=== PATIENT | female | born 1970 | race Hispanic/Latino ===

== ENCOUNTER 2019-10-09 20:41 | Emergency (ER) | payer OTHER ==
[2019-10-09 21:37] LABS: Absolute Lymphocytes (CBC) 2.6 K/uL (0.7-4.9); Basophils % 0.5 % (0-1.3); Hematocrit 37.8 % (36.0-45.0); Lymphocytes % 34.7 % (15.3-44.8); MPV 9.6 fL (7.6-11.3); RBC Red Blood Cell Count 5.14 M/uL (3.86-4.86)
[2019-10-09 21:51] LABS: Protime INR 0.84
[2019-10-09 21:54] LABS: ALT/SGPT 17 U/L (12-78); AST/SGOT 8 U/L (15-37); Albumin 3.3 g/dL (3.4-5.0); Alkaline Phosphatase 134 U/L (45-117); BUN Blood Urea Nitrogen 11 mg/dL (7-18); Bicarbonate 26 mmol/L (21-32); Bilirubin Direct < 0.1 mg/dL (0-0.2); Bilirubin Total 0.3 mg/dL (0.2-1.0); Glucose Level 392 mg/dL (74-106); Magnesium 1.7 mg/dL (1.8-2.4); NT PRO-BNP 11 pg/mL (<125); Protein, Total 7.4 g/dL (6.4-8.2); Sodium Level 136 mmol/L (136-145); Troponin (Emerg Dept Use Only) < 0.02 ng/mL (0.0-0.045)
[2019-10-09] MEDS ORDERED: MAGNESIUM OXIDE 400 MG TAB ONE (22:06)
[2019-10-09] MEDS ORDERED: INSULIN -REGULAR HUMAN 50 UNIT/0.5 ML ML ONE (22:10)
--- NOTE | 2019-10-09 22:13 | EDPHYS ---
Physician Documentation [facility] Name: Lurdes Canales Age: 49 yrs Sex: Female : 1970 Arrival Date: 10/09/2019 Time: 20:42 Bed 7 Private MD: ED Physician Jace Macario HPI: 10/09 22:03 This 49 yrs old Female presents to ER via Ambulatory with complaints of Chest jr8 Pain. 22:03 The patient or guardian reports chest pain that is located primarily in the substernal jr8 area. Onset: acutely, 3 day(s) ago. The pain does not radiate. Associated signs and symptoms: Pertinent positives: cough. The chest pain is described as sharp. Duration: The patient or guardian reports multiple episodes, that are intermittent. Modifying factors: The symptoms are alleviated by nothing. the symptoms are aggravated by nothing. Severity of pain: At its worst the pain was moderate in the emergency department the pain has improved moderately. The patient has not experienced similar symptoms in the past. The patient has not recently seen a physician. Patient stated that she has felt run down and achy for past couple of days. Has had three days of on/off chest pain that is intermittent and non reproducible . 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 - Social history:: Smoking status: Patient/guardian denies using tobacco, never smoked. - Ebola Screening: : Patient negative for fever greater than or equal to 101.5 degrees Fahrenheit, and additional compatible Ebola Virus Disease symptoms Patient denies exposure to infectious person Patient denies travel to an Ebola-affected area in the 21 days before illness onset. ROS: 22:03 Eyes: Negative for injury, pain, redness, and discharge, ENT: Negative for injury, jr8 pain, and discharge, Neck: Negative for injury, pain, and swelling, Abdomen/GI: Negative for abdominal pain, nausea, vomiting, diarrhea, and constipation, Back: Negative for injury and pain, MS/Extremity: Negative for injury and deformity, Skin: Negative for injury, rash, and discoloration, Neuro: Negative for headache, weakness, numbness, tingling, and seizure. 22:03 Constitutional: Positive for body aches, chills, malaise. 22:03 Cardiovascular: Positive for chest pain, Negative for edema, orthopnea, palpitations, paroxysmal nocturnal dyspnea. 22:03 Respiratory: Positive for cough, Negative for dyspnea on exertion, shortness of breath, sputum production, wheezing. Exam: 22:05 Eyes: Pupils equal round and reactive to light, extra-ocular motions intact. Lids and jr8 lashes normal. Conjunctiva and sclera are non-icteric and not injected. Cornea within normal limits. Periorbital areas with no swelling, redness, or edema. ENT: Nares patent. No nasal discharge, no septal abnormalities noted. Tympanic membranes are normal and external auditory canals are clear. Oropharynx with no redness, swelling, or masses, exudates, or evidence of obstruction, uvula midline. Mucous membranes moist. Neck: Trachea midline, no thyromegaly or masses palpated, and no cervical lymphadenopathy. Supple, full range of motion without nuchal rigidity, or vertebral point tenderness. No Meningismus. Chest/axilla: Normal chest wall appearance and motion. Nontender with no deformity. No lesions are appreciated. Cardiovascular: Regular rate and rhythm with a normal S1 and S2. No gallops, murmurs, or rubs. Normal PMI, no JVD. No pulse deficits. Respiratory: Lungs have equal breath sounds bilaterally, clear to auscultation and percussion. No rales, rhonchi or wheezes noted. No increased work of breathing, no retractions or nasal flaring. Abdomen/GI: Soft, non-tender, with normal bowel sounds. No distension or tympany. No guarding or rebound. No evidence of tenderness throughout. Back: No spinal tenderness. No costovertebral tenderness. Full range of motion. Skin: Warm, dry with normal turgor. Normal color with no rashes, no lesions, and no evidence of cellulitis. MS/ Extremity: Pulses equal, no cyanosis. Neurovascular intact. Full, normal range of motion. Neuro: Awake and alert, GCS 15, oriented to person, place, time, and situation. Cranial nerves II-XII grossly intact. Motor strength 5/5 in all extremities. Sensory grossly intact. Cerebellar exam normal. Normal gait. Vital Signs: 20:54 BP 150 / 75; Pulse 85; Resp 17; Temp 98.2; Pulse Ox 98% on R/A; Weight 100.24 kg; tl1 Height 5 ft. 5 in. (165.10 cm); Pain 5/10; 21:49 BP 131 / 75; Pulse 76; Resp 17 S; Pulse Ox 98% on R/A; jd3 22:52 BP 131 / 75; Pulse 82; Resp 18 S; Pulse Ox 97% on R/A; jd3 20:54 Body Mass Index 36.78 (100.24 kg, 165.10 cm) tl1 22:52 glucose of 330. jd3 MDM: 21:07 Patient medically screened. jr8 22:05 Differential diagnosis: abnormal EKG, acute myocardial infarction, chest wall pain, jr8 Cholelithiasis costochondritis, esophagitis, gastritis, gastroesophageal reflux disease (GERD), pneumonia, pulmonary embolus, thoracic aortic disection, unstable angina. HEMA Risk Score: 1 - Recent [<24hrs] Severe Angina, TOTAL SCORE = 1. Data reviewed: vital signs, nurses notes, lab test result(s), EKG, radiologic studies, plain films. Data interpreted: Pulse oximetry: on room air is 98 %. Interpretation: normal. Counseling: I had a detailed discussion with the patient and/or guardian regarding: the historical points, exam findings, and any diagnostic results supporting the discharge/admit diagnosis, lab results, radiology results, the need for outpatient follow up, a family practitioner, to return to the emergency department if symptoms worsen or persist or if there are any questions or concerns that arise at home. 22:07 Special discussion: Based on the patient's history, exam, and Dx evaluation, there is jr8 no indication for emergent intervention or inpatient Tx. It is understood by the patient/guardian that if the Sx's persist or worsen they need to return immediately for re-evaluation. 10/09 21:07 Order name: Basic Metabolic Panel; Complete Time: 22:00 jr8 10/09 21: Order name: CBC with Diff; Complete Time: 22:00 jr8 10/09 21:07 Order name: LFT's; Complete Time: 22:00 jr8 10/09 21:07 Order name: Magnesium; Complete Time: 22:00 10/09 21:07 Order name: NT PRO-BNP; Complete Time: 22:00 10/09 21:07 Order name: PT-INR; Complete Time: 22:00 10/09 21:07 Order name: Troponin (emerg Dept Use Only); Complete Time: 22:00 10/09 21:07 Order name: XRAY Chest (1 view) [facility] 10/09 21:07 Order name: EKG; Complete Time: 21:08 10/09 21:07 Order name: Cardiac monitoring; Complete Time: :33 10/09 21:17 Order name: Flu: Per IGNACIO Mendez; Complete Time: 21: [facility] 10/09 21:07 Order name: EKG - Nurse/Tech; Complete Time: :33 10/09 21:07 Order name: IV Saline Lock; Complete Time: :33 10/09 21:07 Order name: Labs collected and sent; Complete Time: :33 10/09 21:07 Order name: O2 Per Protocol; Complete Time: :33 10/09 21:07 Order name: O2 Sat Monitoring; Complete Time: : Administered Medications: 22:14 Drug: Magnesium Oxide 400 mg Route: PO; jd3 22:54 Follow up: Response: No adverse reaction jd3 22:15 Drug: Insulin Regular Human 10 units {Co-Signature: tl1 (Corry Leos RN).} Route: jd3 IVP; Site: right antecubital; 22:54 Follow up: Response: No adverse reaction jd3 Disposition: 10/09/19 22:12 Discharged to Home. Impression: Chest pain, unspecified, Hyperglycemia, unspecified. - Condition is Stable. - Discharge Instructions: Nonspecific Chest Pain, Hyperglycemia, Blood Glucose Monitoring, Adult. - Medication Reconciliation Form, Thank You Letter, Antibiotic Education, Prescription Opioid Use, Work release form form. - Follow up: Micha Rojas MD; When: 1 - 2 days; Reason: Recheck today's complaints, Continuance of care, Re-evaluation by your physician. - Problem is new. - Symptoms have improved. Addendum: 10/11/2019 13:49 Co-signature as Attending Physician, Jace Macario MD I agree with the assessment and c mccollum plan of care. Signatures: Dispatcher [employer] EDWA Jace Macario MD MD cha Roszak, Josh, IGNACIO PIERRE jr8 Corry Leos, RN RN tl1 Patrick Campbell RN RN jd3 Corry Leos RN tl1 Corrections: (The following items were deleted from the chart) 10/09 22:55 22:12 10/09/2019 22:12 Discharged to Home. Impression: Chest pain, unspecified; jd3 Hyperglycemia, unspecified. Condition is Stable. Forms are Medication Reconciliation Form, Thank You Letter, Antibiotic Education, Prescription Opioid Use. Follow up: Micha Rojas; When: 1 - 2 days; Reason: Recheck today's complaints, Continuance of care, Re-evaluation by your physician. Problem is new. Symptoms have improved. jr8
--- NOTE | 2019-10-09 22:13 | ER ---
Nurse's Notes [facility] Name: Lurdes Canales Age: 49 yrs Sex: Female : 1970 Arrival Date: 10/09/2019 Time: 20:42 Bed 7 Private MD: Diagnosis: Chest pain, unspecified;Hyperglycemia, unspecified Presentation: 10/09 20:52 Presenting complaint: Patient states: I have been having intermittent chest pain for 3 tl1 days and today I started having cough and fever and just not feeling well. Transition of care: patient was not received from another setting of care. Onset of symptoms was October 06, 2019. Risk Assessment: Do you want to hurt yourself or someone else? Patient reports no desire to harm self or others. Initial Sepsis Screen: Does the patient meet any 2 criteria? No. Patient's initial sepsis screen is negative. Does the patient have a suspected source of infection? No. Patient's initial sepsis screen is negative. Care prior to arrival: None. 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 - Social history:: Smoking status: Patient/guardian denies using tobacco, never smoked. - Ebola Screening: : Patient negative for fever greater than or equal to 101.5 degrees Fahrenheit, and additional compatible Ebola Virus Disease symptoms Patient denies exposure to infectious person Patient denies travel to an Ebola-affected area in the 21 days before illness onset. Screenin:01 Abuse screen: Denies threats or abuse. Nutritional screening: No deficits noted. jd3 Tuberculosis screening: No symptoms or risk factors identified. Fall Risk Ambulatory Aid- None/Bed Rest/Nurse Assist (0 pts). Gait- Normal/Bed Rest/Wheelchair (0 pts) Mental Status- Oriented to own ability (0 pts). Total Mckenna Fall Scale indicates No Risk (0-24 pts). Assessment: 20:58 General: Appears in no apparent distress. uncomfortable, Behavior is calm, cooperative, jd3 appropriate for age. Pain: Complains of pain in chest Pain does not radiate. Quality of pain is described as sharp, Pain began suddenly. Neuro: Level of Consciousness is awake, alert, obeys commands, Oriented to person, place, time, situation. Cardiovascular: Heart tones S1 S2 present Capillary refill < 3 seconds Patient's skin is warm and dry. Rhythm is regular. Respiratory: Airway is patent Respiratory effort is even, unlabored, Respiratory pattern is regular, symmetrical, Denies cough, shortness of breath. GI: Abdomen is round non-distended, Patient currently denies diarrhea, nausea, vomiting. : No signs and/or symptoms were reported regarding the genitourinary system. EENT: No signs and/or symptoms were reported regarding the EENT system. Derm: Skin is intact, Skin is dry, Skin is normal, Skin temperature is warm. Musculoskeletal: Circulation, motion, and sensation intact. Range of motion: intact in all extremities. 21:49 Reassessment: Patient appears in no apparent distress at this time. No changes from jd3 previously documented assessment. Patient and/or family updated on plan of care and expected duration. Pain level reassessed. Patient is alert, oriented x 3, equal unlabored respirations, skin warm/dry/pink. 22:54 Reassessment: Patient appears in no apparent distress at this time. Patient and/or d3 family updated on plan of care and expected duration. Pain level reassessed. Patient is alert, oriented x 3, equal unlabored respirations, skin warm/dry/pink. discharged after rechecking blood sugar after insulin was given. Patient states feeling better. Vital Signs: 20:54 BP 150 / 75; Pulse 85; Resp 17; Temp 98.2; Pulse Ox 98% on R/A; Weight 100.24 kg; tl1 Height 5 ft. 5 in. (165.10 cm); Pain 5/10; 21:49 BP 131 / 75; Pulse 76; Resp 17 S; Pulse Ox 98% on R/A; jd3 22:52 BP 131 / 75; Pulse 82; Resp 18 S; Pulse Ox 97% on R/A; jd3 20:54 Body Mass Index 36.78 (100.24 kg, 165.10 cm) tl1 22:52 glucose of 330. d3 ED Course: 20:42 Patient arrived in ED. cf2 20:53 Triage completed. tl1 20:55 Arm band placed on right wrist. EKG completed in triage. Results shown to MD. tl1 20:56 EKG done, by ED staff, reviewed by Jace Macario MD. jd3 20:57 Patrick Campbell, SIMIN is Primary Nurse. jd3 21:01 Patient has correct armband on for positive identification. Placed in gown. Bed in low jd3 position. Call light in reach. Side rails up X 1. Adult w/ patient. bend sorter on. Pulse ox on. NIBP on. 21:01 Patient maintains SpO2 saturation greater than 95% on room air. jd3 21:07 Hermes Chahal PA is PHCP. jr8 21:07 Jace Macario MD is Attending Physician. jr8 21:31 XRAY Chest (1 view) In Process Unspecified. EDMS 22:12 Micha Rojas MD is Referral Physician. jr8 22:53 No provider procedures requiring assistance completed. IV discontinued, intact, jd3 bleeding controlled, No redness/swelling at site. Pressure dressing applied. Administered Medications: 22:14 Drug: Magnesium Oxide 400 mg Route: PO; jd3 22:54 Follow up: Response: No adverse reaction jd3 22:15 Drug: Insulin Regular Human 10 units {Co-Signature: tl1 (Corry Leos RN).} Route: jd3 IVP; Site: right antecubital; 22:54 Follow up: Response: No adverse reaction jd3 Outcome: 22:12 Discharge ordered by MD. jr8 22:53 Discharged to home ambulatory, with family. jd3 22:53 Condition: stable 22:53 Discharge instructions given to patient, family, Instructed on discharge instructions, follow up and referral plans. Demonstrated understanding of instructions, follow-up care. 22:55 Patient left the ED. jd3 Signatures: Dispatcher [employer] EDMS Hermes Chahal PA PA jr8 Lasagna, Tonya, SIMIN RN tl1 Patrick Campbell RN RN jd3 Khadijah Oquendo cf2 Corry Leos RN tl1 Corrections: (The following items were deleted from the chart) 22:53 22:52 BP 131 / 75; Pulse 82bpm; Resp 18bpm; Spontaneous; Pulse Ox 97% RA; jd3 jd3
--- NOTE | 2019-10-10 08:06 | RAD REPORT ---
EXAM DESCRIPTION: Doris Single View10/09/2019 9:31 pm CLINICAL HISTORY: Chest pain COMPARISON: none FINDINGS: The lungs appear clear of acute infiltrate. The heart is normal size IMPRESSION: No acute abnormalities displayed
--- NOTE | 2019-10-10 08:18 | EKG ---
Test Date: 2019-10-09 Test Time: 20:52:41 Remote Encoding Operations Supervisor: MATI MEASUREMENT RESULTS: Intervals: Rate: 79 MD: 130 QRSD: 94 QT: 398 QTc: 456 Bonner: P: 55 MD: 130 QRS: 55 T: 44 INTERPRETIVE STATEMENTS: Normal sinus rhythm Normal ECG No previous ECG available for comparison Electronically Signed On 10-10-19 08:15:59 [employer] by Micha Rojas
[2019-10-10 09:13] VITALS: TEMP 98.2
[2019-10-10 09:15] VITALS: BP 131/75
[2019-10-10 09:17] VITALS: O2SAT 97
== END 2019-10-09 22:55 | disposition home or self-care (01) ==
LOC: ER 20:41
DX: R07.9 Chest pain, unspecified (principal); E11.65 Type 2 diabetes mellitus with hyperglycemia; I10 Essential (primary) hypertension
CPT/HCPCS: 36415; 71045; 80048; 80076; 82947; 83735; 83880; 84484; 85025; 85610; 87804; 93005; 96374; 99285

== ENCOUNTER 2021-03-14 21:00 | Observation (INO) | payer BC, OTHER ==
[2021-03-14 22:09] LABS: Absolute Lymphocytes (CBC) 2.7 K/uL (0.7-4.9); Basophils % 0.7 % (0-1.3); Lymphocytes % 33.5 % (15.3-44.8); MPV 8.9 fL (7.6-11.3); RBC Red Blood Cell Count 4.72 M/uL (3.86-4.86)
[2021-03-14 22:26] LABS: Protime INR 0.92
[2021-03-14 22:42] LABS: ALT/SGPT 20 U/L (12-78); AST/SGOT 10 U/L (15-37); Albumin 3.4 g/dL (3.4-5.0); Alkaline Phosphatase 116 U/L (45-117); BUN Blood Urea Nitrogen 13 mg/dL (7-18); Bicarbonate 27 mmol/L (21-32); Bilirubin Direct < 0.1 mg/dL (0-0.2); Bilirubin Total 0.2 mg/dL (0.2-1.0); Glucose Level 190 mg/dL (74-106); Magnesium 1.9 mg/dL (1.8-2.4); NT PRO-BNP 32 pg/mL (<125); Potassium 3.9 mmol/L (3.5-5.1); Protein, Total 7.7 g/dL (6.4-8.2); Sodium Level 138 mmol/L (136-145); Troponin (Emerg Dept Use Only) < 0.02 ng/mL (0.0-0.045)
[2021-03-14 22:48] LABS: Urine Blood TRACE (Negative); Urine Glucose 1+ (Negative); Urine Protein TRACE (Negative); Urine Specific Gravity >1.030 (1.005-1.030)
[2021-03-14 22:49] LABS: Urine Specific Gravity/Preg >1.030 (1.005-1.030)
[2021-03-14] MEDS ORDERED: ASPIRIN 81 MG CHEWABLE TABLET ONE (23:08)
--- NOTE | 2021-03-15 02:17 | EDPHYS ---
Physician Documentation [facility] Name: Lurdes Canales Age: 51 yrs Sex: Female : 1970 Arrival Date: 03/14/2021 Time: 21:02 Bed 18 Private MD: ED Physician Quinten Tran HPI: 03/14 22:25 This 51 yrs old Female presents to ER via Ambulatory with complaints of Chest mh7 Pain, TINGLING IN FACE. 22:25 The patient or guardian reports chest pain that is located primarily in the anterior mh7 chest wall, left. Onset: 2 day(s) ago. The pain does not radiate. 03/15 00:01 Associated signs and symptoms: Pertinent negatives: abdominal pain, cough, diaphoresis, mh7 dizziness, headache, lower extremity pain, lower extremity swelling, lightheadedness, nausea, near syncope, palpitations, recent travel, shortness of breath, syncope, vomiting. The chest pain is described as sharp. Duration: The patient or guardian reports multiple episodes, that are intermittent, that wax and wane. Modifying factors: The symptoms are alleviated by nothing. the symptoms are aggravated by nothing. Severity of pain: At its worst the pain was moderate 2 day(s) ago, in the emergency department the pain has improved markedly. SAP GATHERER: 03/14 21:10 LMP N/A - Irregular menses ca1 Historical: - Allergies: 21:10 No Known Allergies; ca1 - Home Meds: 21:10 losartan 50 mg oral tab 1 tab once daily [Active]; metformin 1,000 mg oral tab 1 tab 2 ca1 times per day [Active]; - PMHx: 21:10 Diabetes - NIDDM; Hypertension; ca1 - PSHx: 21:10 None; ca1 - Immunization history:: Client reports receiving the 2nd dose of the Covid vaccine, Client reports receiving the 1st dose of the Covid vaccine, Flu vaccine is not up to date. - Social history:: Smoking status: Patient denies any tobacco usage or history of. ROS: 03/15 00:01 Constitutional: Negative for fever, chills, and weight loss, Eyes: Negative for injury, mh7 pain, redness, and discharge, ENT: Negative for injury, pain, and discharge, Respiratory: Negative for shortness of breath, cough, wheezing, and pleuritic chest pain, Abdomen/GI: Negative for abdominal pain, nausea, vomiting, diarrhea, and constipation, Back: Negative for injury and pain, : Negative for injury, bleeding, discharge, and swelling, MS/Extremity: Negative for injury and deformity, Skin: Negative for injury, rash, and discoloration, Neuro: Negative for headache, weakness, numbness, tingling, and seizure, Psych: Negative for depression, anxiety, suicide ideation, homicidal ideation, and hallucinations, Allergy/Immunology: Negative for hives, rash, and allergies, Endocrine: Negative for neck swelling, polydipsia, polyuria, polyphagia, and marked weight changes, Hematologic/Lymphatic: Negative for swollen nodes, abnormal bleeding, and unusual bruising. Exam: 00:01 Constitutional: This is a well developed, well nourished patient who is awake, alert, mh7 and in no acute distress. Head/Face: Normocephalic, atraumatic. Eyes: Pupils equal round and reactive to light, extra-ocular motions intact. Lids and lashes normal. Conjunctiva and sclera are non-icteric and not injected. Cornea within normal limits. Periorbital areas with no swelling, redness, or edema. Neck: Trachea midline, no thyromegaly or masses palpated, and no cervical lymphadenopathy. Supple, full range of motion without nuchal rigidity, or vertebral point tenderness. No Meningismus. Chest/axilla: Normal chest wall appearance and motion. Nontender with no deformity. No lesions are appreciated. Cardiovascular: Regular rate and rhythm with a normal S1 and S2. No gallops, murmurs, or rubs. Normal PMI, no JVD. No pulse deficits. Respiratory: Lungs have equal breath sounds bilaterally, clear to auscultation and percussion. No rales, rhonchi or wheezes noted. No increased work of breathing, no retractions or nasal flaring. Abdomen/GI: Soft, non-tender, with normal bowel sounds. No distension or tympany. No guarding or rebound. No evidence of tenderness throughout. Back: No spinal tenderness. No costovertebral tenderness. Full range of motion. Skin: Warm, dry with normal turgor. Normal color with no rashes, no lesions, and no evidence of cellulitis. MS/ Extremity: Pulses equal, no cyanosis. Neurovascular intact. Full, normal range of motion. Neuro: Awake and alert, GCS 15, oriented to person, place, time, and situation. Cranial nerves II-XII grossly intact. Motor strength 5/5 in all extremities. Sensory grossly intact. Cerebellar exam normal. Normal gait. Psych: Awake, alert, with orientation to person, place and time. Behavior, mood, and affect are within normal limits. Vital Signs: 03/14 21:06 BP 175 / 104; Pulse 90; Resp 16 S; Temp 97.2(TE); Pulse Ox 98% on R/A; Weight 110.22 kg ca1 (R); Height 5 ft. 5 in. (165.10 cm) (R); Pain 5/10; 23:16 BP 142 / 63; Pulse 77; Resp 18; Pulse Ox 99% ; ea 03/15 01:20 BP 151 / 92; Pulse 78; Resp 18; Pulse Ox 98% on R/A; ea 03/14 21:06 Body Mass Index 40.44 (110.22 kg, 165.10 cm) ca1 MDM: 02:14 Differential diagnosis: acute myocardial infarction, acute pericarditis, anxiety, mh7 coronary artery disease chest wall pain, congestive heart failure costochondritis, myocarditis, pericarditis, pleurisy, pneumonia, pneumothorax, pulmonary embolus. HEART Score: History: Moderately Suspicious (1), ECG: Normal (0), Age: > 45 and < 65 years (1), Risk Factors: > or = 3 Risk factors for atherosclerotic disease (2), [Hypertension] [DM] [+ Family HX] [Obesity] Troponin: < or = 1 x Normal Limit (0), Total Score = 4. The patient was given aspirin in the Emergency Department. Data reviewed: vital signs, nurses notes, lab test result(s), cardiac enzymes, CBC, electrolytes, urinalysis, EKG, radiologic studies, plain films. Data interpreted: Pulse oximetry: on room air is 98 %. Interpretation: normal. Counseling: I had a detailed discussion with the patient and/or guardian regarding: the historical points, exam findings, and any diagnostic results supporting the discharge/admit diagnosis, the presence of at least one elevated blood pressure reading (>120/80) during this emergency department visit, lab results, radiology results, the need for further work-up and treatment in the hospital. Response to treatment: the patient's symptoms have markedly improved after treatment. 02:16 Patient medically screened. [facility] 03/14 21:47 Order name: Basic Metabolic Panel; Complete Time: 22:45 [facility] 03/14 21:47 Order name: CBC with Diff; Complete Time: 22:45 [facility] 03/14 21:47 Order name: LFT's; Complete Time: 22:45 [facility] 03/14 21:47 Order name: Magnesium; Complete Time: 22:45 [facility] 03/14 21:47 Order name: NT PRO-BNP; Complete Time: 22:45 [facility] 03/14 21:47 Order name: PT-INR; Complete Time: 23:55 [facility] 03/14 21:47 Order name: Troponin (emerg Dept Use Only); Complete Time: 22:45 [facility] 03/14 22:18 Order name: Urine Dipstick--Ancillary (enter results); Complete Time: 22:51 [facility] 03/14 22:18 Order name: Urine --Ancillary (enter results); Complete Time: 22:51 [facility] 03/14 23:21 Order name: D-Dimer; Complete Time: 23:55 [facility] 03/15 01:03 Order name: Troponin (emerg Dept Use Only); Complete Time: 01:54 [facility] 03/15 05:09 Order name: COVID-19 : Document "Date of Symptom Onset" if Symptomatic. [facility] 03/15 05:36 Order name: CORONAVIRUS [facility] 03/14 21:10 Order name: EKG; Complete Time: 21:11 [facility] 03/14 21:10 Order name: EKG - Nurse/Tech; Complete Time: 21:12 [facility] 03/14 21:47 Order name: XRAY Chest (1 view) [facility] 03/14 21:47 Order name: Cardiac monitoring; Complete Time: 21:57 [facility] 03/14 21:47 Order name: IV Saline Lock; Complete Time: 21:58 [facility] 03/14 21:47 Order name: Labs collected and sent; Complete Time: 21:58 [facility] 03/14 21:47 Order name: O2 Per Protocol; Complete Time: 21:58 [facility] 03/14 21:47 Order name: O2 Sat Monitoring; Complete Time: 21:58 [facility] 03/15 06:18 Order name: SARS-COV-2 RT PCR [facility] 03/15 07:52 Order name: Glucose, Ancillary Testing [facility] 03/15 07:59 Order name: Troponin I [facility] 03/15 07:59 Order name: Lipid Profile [facility] 03/15 07:59 Order name: T4 Free [facility] 03/15 07:59 Order name: Thyroid Stimulating Hormone [facility] 03/15 11:54 Order name: Glucose, Ancillary Testing [facility] 03/14 21:48 Order name: Urine Dipstick-Ancillary (obtain specimen); Complete Time: 22:15 7 03/14 21:48 Order name: Urine Test (obtain specimen); Complete Time: 22:15 [facility] Administered Medications: 03/14 23:10 Drug: Aspirin Chewable Tablet 324 mg Route: PO; ea 03/15 01:21 Follow up: Response: No adverse reaction ea Disposition: 03/15/21 02:17 Hospitalization ordered by Leeanna Cutler for Observation. Preliminary diagnosis is Chest pain, unspecified. - Bed requested for [facility] ER HOLD. - Status is Observation. bp - Condition is Stable. - Problem is new. - Symptoms have improved. Signatures: Dispatcher [employer] [facility] Evette Palma RN RN bb Michelle Almodovar, RN RN cg Ann Snider RN RN ea Toni Bacon, Ladan Bennett RN, RN RN ca1 Holmes, Maurice, MD MD 7 Corrections: (The following items were deleted from the chart) 03/14 23:21 22:52 D-DIMER+COAG.LAB.BRZ ordered. [facility] 03/15 04:44 02:16 Hospitalization Ordered by Leeanna Cutler MD for Observation. Preliminary cg diagnosis is Chest pain, unspecified. Bed requested for Telemetry/MedSurg (observation). Status is Observation. Condition is Stable. Problem is new. Symptoms have improved. [facility] 05:52 04:44 03/15/2021 02:17 Hospitalization Ordered by Leeanna Cutler MD for Observation. bb Preliminary diagnosis is Chest pain, unspecified. Bed requested for [facility] ER HOLD. Status is Observation. Condition is Stable. Problem is new. Symptoms have improved. cg 16:03 05:52 03/15/2021 02:17 Hospitalization Ordered by Leeanna Cutler MD for Observation. bp Preliminary diagnosis is Chest pain, unspecified. Bed requested for [facility] ER HOLD. Status is Observation. Condition is Stable. Problem is new. Symptoms have improved. bb
--- NOTE | 2021-03-15 02:17 | ER ---
Nurse's Notes [facility] Name: Lurdes Canales Age: 51 yrs Sex: Female : 1970 Arrival Date: 03/14/2021 Time: 21:02 Bed 18 Private MD: Diagnosis: Chest pain, unspecified Presentation: 03/14 21:06 Chief complaint: Patient states: Chest pain, non-radiating, intermittent x 2 days. ca1 Today, with some tingling on lower face and upper neck. 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 Coronavirus screen: Client denies travel out of the [place] in the last 14 days. At this time, the client does not indicate any symptoms associated with coronavirus-19. Ebola Screen: Patient negative for fever greater than or equal to 101.5 degrees Fahrenheit, and additional compatible Ebola Virus Disease symptoms Patient denies exposure to infectious person. Patient denies travel to an Ebola-affected area in the 21 days before illness onset. No symptoms or risks identified at this time. Initial Sepsis Screen: Does the patient meet any 2 criteria? No. Patient's initial sepsis screen is negative. Does the patient have a suspected source of infection? No. Patient's initial sepsis screen is negative. Risk Assessment: Do you want to hurt yourself or someone else? Patient reports no desire to harm self or others. Onset of symptoms was March 14, 2021. 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 - Social history:: Smoking status: Patient denies any tobacco usage or history of. Screenin:01 Abuse screen: Denies threats or abuse. Nutritional screening: No deficits noted. ea Tuberculosis screening: No symptoms or risk factors identified. Fall Risk IV access (20 points). Assessment: 22:01 General: Appears in no apparent distress. Behavior is calm, cooperative, appropriate ea for age. Pain: Complains of pain in chest Pain does not radiate. Neuro: Level of Consciousness is awake, alert, obeys commands, Oriented to person, place, time. Cardiovascular: Patient's skin is warm and dry. Respiratory: Airway is patent Respiratory effort is even, unlabored, Respiratory pattern is regular, symmetrical. Derm: Skin is pink, warm \T\ dry. 23:16 Reassessment: Patient and/or family updated on plan of care and expected duration. Pain ea level reassessed. Patient is alert, oriented x 3, equal unlabored respirations, skin warm/dry/pink. 03/15 01:21 Reassessment: Patient and/or family updated on plan of care and expected duration. Pain ea level reassessed. Patient is alert, oriented x 3, equal unlabored respirations, skin warm/dry/pink. Awaiting on repeat troponin. 02:58 Reassessment: Patient and/or family updated on plan of care and expected duration. Pain ea level reassessed. Patient is alert, oriented x 3, equal unlabored respirations, skin warm/dry/pink. hospitalist at bedside updating pt on plan of care. 07:30 Reassessment: RECD REPORT FROM LUMA DUVAL. 51YO HF P/W CHEST PAIN, ER HOLD FOR CHEST bp PAIN. 16:02 Reassessment: PT D/C HOME FROM INPATIENT. bp Vital Signs: 03/14 21:06 BP 175 / 104; Pulse 90; Resp 16 S; Temp 97.2(TE); Pulse Ox 98% on R/A; Weight 110.22 kg ca1 (R); Height 5 ft. 5 in. (165.10 cm) (R); Pain 5/10; 23:16 BP 142 / 63; Pulse 77; Resp 18; Pulse Ox 99% ; ea 03/15 01:20 BP 151 / 92; Pulse 78; Resp 18; Pulse Ox 98% on R/A; ea 03/14 21:06 Body Mass Index 40.44 (110.22 kg, 165.10 cm) ca1 ED Course: 03/14 21:02 Patient arrived in ED. am4 21:08 Triage completed. ca1 21:10 Arm band placed on right wrist. ca1 21:29 Quinten Tran MD is Attending Physician. mh7 21:30 Lucy Cazares, RN is Primary Nurse. lp1 21:40 Patient maintains SpO2 saturation greater than 95% on room air. ea 21:58 Inserted saline lock: 20 gauge in right antecubital area, using aseptic technique. ea Blood collected. 22:02 Patient has correct armband on for positive identification. 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 Pulse ea ox on. NIBP on. 22:52 XRAY Chest (1 view) In Process Unspecified. EDMS 03/15 02:16 Leeanna Cutler MD is Hospitalizing Provider. [facility] 02:57 No provider procedures requiring assistance completed. Patient admitted, IV remains in ea place. 07:49 Primary Nurse role handed off by Lucy Cazares RN 10:53 Toni Bacon, ISMIN is Primary Nurse. bp Administered Medications: 03/14 23:10 Drug: Aspirin Chewable Tablet 324 mg Route: PO; ea 03/15 01:21 Follow up: Response: No adverse reaction ea Outcome: 02:17 Decision to Hospitalize by Provider. [facility] 02:57 Admitted to ER Hold. Please see [facility] for further documentation. ea 02:57 Condition: stable 02:57 Instructed on the need for admit, Demonstrated understanding of instructions. 16:03 Patient left the ED. bp Signatures: Dispatcher [employer] EDIL Emma Lara Lucy Cazares, RN RN lp1 Ann Snider RN RN ea Peltier, Brian, RN RN bp AcobLadan RN RN ca1 Quinten Tran MD MD Lilly Lion am4 Corrections: (The following items were deleted from the chart) 03/14 21:08 21:06 BP 175 / 04; Pulse 90bpm; Resp 16bpm; Spontaneous; Pulse Ox 98% RA; Temp 97.2F ca1 Temporal; 110.22 kg Reported; Height 5 ft. 5 in. Reported; BMI: 40.4; Pain 5/10; ca1
--- NOTE | 2021-03-15 03:17 | P.HP ---
Certification for Inpatient Patient admitted to: Observation With expected LOS: <2 Midnights Patient will require the following post-hospital care: None Practitioner: I am a practitioner with admitting privileges, knowledge of patient current condition, hospital course, and medical plan of care. Services: Services provided to patient in accordance with Admission requirements found in Title 42 Section 412.3 of the Code of Federal Regulations Patient History Date of Service: 03/15/21 Reason for admission: Chest pain History of Present Illness: 51-year-old female with history of diabetes, hypertension, obesity presents emergency department for chest pain. Patient reports the chest pain began approximately 2-3 days ago and is intermittent in nature, pain described as dull, nonradiating with no associated signs or symptoms. Patient reports she has had similar symptoms once in the past and was seen by her primary care doctor and was given medications for GERD which did not seem to help. Evaluation in the emergency department significant for glucose 190 troponin negative x2 D-dimer 490. Chest x-ray unremarkable, EKG without acute changes. ED provider wishes to admit patient for chest pain rule out. 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 moist/pink, EOMI, Sclerae nonicteric Neck: Supple, 2+ carotid pulse no bruit, No LAD, Without JVD or thyroid abnormality Respiratory: Clear to auscultation bilaterally, Normal air movement Cardiovascular: Regular rate/rhythm, Normal S1 S2 Gastrointestinal: Normal bowel sounds, No tenderness Musculoskeletal: No tenderness Integumentary: No rashes Neurological: Normal gait, Normal speech, Normal strength at 5/5 x4 extr, Normal tone, Normal affect Lymphatics: No axilla or inguinal lymphadenopathy - Studies Laboratory Data (last 24 hrs) 03/14/21 21:57: PT 10.6, INR 0.92 03/14/21 21:57: WBC 8.00, Hgb 13.5, Hct 39.0, Plt Count 268 03/14/21 21:57: Sodium 138, Potassium 3.9, BUN 13, Creatinine 0.58, Glucose 190 H, Magnesium 1.9, Total Bilirubin 0.2, AST 10 L, ALT 20, Alkaline Phosphatase 116 Assessment and Plan - Plan Assessment Chest pain rule out ACS Diabetes mellitus type 2 Hypertension Plan Chest pain rule out ACS: Troponin negative x2, repeat 1 more this morning. Monitor on telemetry. Cardiology consult in place. Check TSH/lipid panel with morning labs. DVT prophylaxis Lovenox 40 mg subcutaneous once daily. Appreciate further input from cardiology. Diabetes mellitus type 2: Last A1c in January was 7 per patient. Blood sugar of 190, a.c. HS Accu-Cheks, sliding scale insulin therapy. Hypertension: Continue home meds. Discharge Plan: Home Plan to discharge in: 24 Hours - Advance Directives Does patient have a Living Will: No Does patient have a Durable POA for Healthcare: No - Code Status/Comfort Care Code Status Assessed: Yes (Full code) Critical Care: No Time Spent Managing Pts Care (In Minutes): 55
[2021-03-15 03:46] VITALS: BMI 40.4
[2021-03-15] MEDS ORDERED: MORPHINE 2 MG/ML SYR IV PRN (03:56)
[2021-03-15] MEDS ORDERED: ONDANSETRON 4 MG/2 ML VIAL IV PRN (03:56)
[2021-03-15] MEDS ORDERED: ACETAMINOPHEN 500 MG TAB PO PRN (03:56)
[2021-03-15 04:04] VITALS: TEMP 98.5
[2021-03-15] MEDS ORDERED: METOPROLOL TAR 25 MG TAB PO SCH (06:00)
[2021-03-15] MEDS: INSULIN -REGULAR HUMAN 50 UNIT/0.5 ML ML SQ SCH ×2 (07:30→11:30)
--- NOTE | 2021-03-15 07:52 | EKG ---
Test Date: 2021-03-14 Test Time: 21:14:26 Corrosion Technician: ZAC MEASUREMENT RESULTS: Intervals: Rate: 80 DC: 132 QRSD: 90 QT: 390 QTc: 449 [place]: P: 72 DC: 132 QRS: 69 T: 22 INTERPRETIVE STATEMENTS: Normal sinus rhythm Normal ECG Compared to ECG 10/09/2019 20:52:41 No significant changes Electronically Signed On 03-15-21 07:51:53 CDT by Micha Rojas
[2021-03-15 07:57] LABS: HDL Cholesterol 45 mg/dL (40-60); LDL Cholesterol, Calculated 133 (<130); Troponin I < 0.02 ng/mL (0.0-0.045)
--- NOTE | 2021-03-15 08:25 | RAD REPORT ---
EXAM DESCRIPTION: RAD - Chest Single View - 03/14/2021 10:51 pm CLINICAL HISTORY: CHEST PAIN COMPARISON: September 2019 TECHNIQUE: AP portable chest image was obtained 03/14/2021 10:51 pm . FINDINGS: No peripheral mass or consolidation. Lung markings and vasculature are accentuated by much more shallow inspiratory effort. Significant failure or volume overload are doubtful. Heart and vasculature are normal. No measurable pleural effusion and no pneumothorax. No acute bony abnormality seen. No acute aortic findings suspected. IMPRESSION: No acute cardiopulmonary process. No significant change from comparison.
[2021-03-15] MEDS ORDERED: ASPIRIN EC 81 MG TAB PO SCH (09:00)
[2021-03-15] MEDS ORDERED: FAMOTIDINE 20 MG/2 ML VIAL IV SCH (09:00)
[2021-03-15] MEDS ORDERED: ENOXAPARIN 40 MG/0.4 ML SQ SCH (09:00)
[2021-03-15] MEDS ORDERED: ENOXAPARIN 40 MG/0.4 ML SQ ONE (09:49)
[2021-03-15] MEDS ORDERED: METOPROLOL TAR 25 MG TAB ONE (09:49)
[2021-03-15] MEDS ORDERED: ASPIRIN EC 81 MG TAB PO ONE (09:49)
[2021-03-15] MEDS ORDERED: FAMOTIDINE 20 MG/2 ML VIAL IV ONE (09:50)
[2021-03-15 15:54] VITALS: BP 147/101
[2021-03-15 16:21] VITALS: O2SAT 98
[2021-03-15] MEDS ORDERED: ATORVASTATIN 40 MG TAB PO SCH (21:00)
--- NOTE | 2021-03-16 14:43 | CON ---
Date of Consultation: 03/15/[address] Cutler's service on 03/15/2021. Reason For Consultation: Chest pain. History Of Present Illness: Ms. Canales is patient with history of hypertension, diabetes. No previ ous cardiac history. Came in with mid-epigastric chest pain, face tingling. Blood pressure was elev ated at home at 178. Denied PND, orthopnea, pedal edema, palpitation, or syncope. Symptoms have res olved by now. She has a normal EKG, normal chest x-ray, normal troponin, normal BNP, normal D-dimer. Past Medical History: Hypertension, diabetes. Allergies: NONE. Review of Systems: Negative. Social History: Negative. Family History: Positive for diabetes. Medications: At home include losartan and metformin. Physical Examination: Vital Signs: Stable, afebrile. HEENT: Negative. Neck: Supple. No bruit. Chest: Clear to auscultation and percussion. Cardiac: Revealed a regular rhythm and rate. No murmurs, gallops, or rubs. Abdomen: Benign. Extremities: Revealed no clubbing, cyanosis, or edema. Diagnostic Data: Normal. Impression And Plan: Atypical chest pain in a patient with hypertension and diabetes. I do not thin k this is cardiac. I think this is more gastric in nature. She has ruled out for an HI. I am comfo rtable with her going home on her present regimen. I will get her set up for an outpatient stress te st and echocardiogram. I think she needs to have an MPI done. It may be reasonable to send her home on proton pump inhibitor. I think the patient's numbness may have been secondary to her hypertensio n. NB/MODL Voice ID: [id number] Report ID: [id number]
--- NOTE | 2021-04-05 02:14 | P.DS ---
Discharge Date: 03/15/21 Disposition: ROUTINE DISCHARGE Discharge Condition: GOOD Reason for Admission: Chest pain Brief History of Present Illness: Patient is a 51-year-old female with history of diabetes, hypertension, obesity presents emergency department for chest pain. Patient reports the chest pain began approximately 2-3 days ago and is intermittent in nature, pain described as dull, nonradiating with no associated signs or symptoms. Patient reports she has had similar symptoms once in the past and was seen by her primary care doctor and was given medications for GERD which did not seem to help. Evaluation in the emergency department significant for glucose 190 troponin negative x2 D-dimer 490. Chest x-ray unremarkable, EKG without acute changes. ED provider wishes to admit patient for chest pain rule out. Hospital Course: Patient done well during hospital stay. Patient is clinically improving. Workup was essentially unremarkable. Patient appears to be doing well and is stable for discharge and outpatient follow with Cardiology for further cardiac testing. At this time, patient is stable for discharge home. Vital Signs/Physical Exam: Temp Pulse Resp BP Pulse Ox 98.5 F 72 16 147/101 H 99 03/15/21 08:00 03/15/21 12:00 03/15/21 12:00 03/15/21 12:00 03/15/21 12:00 General: Alert, In no apparent distress, Oriented x3 Laboratory Data at Discharge: WBC 8.00 K/uL (4.3-10.9) 03/14/21 21:57 Hgb 13.5 g/dL (12.0-15.0) 03/14/21 21:57 Hct 39.0 % (36.0-45.0) 03/14/21 21:57 Plt Count 268 K/uL (152-406) 03/14/21 21:57 PT 10.6 SECONDS (9.5-12.5) 03/14/21 21:57 INR 0.92 03/14/21 21:57 Sodium 138 mmol/L (136-145) 03/14/21 21:57 Potassium 3.9 mmol/L (3.5-5.1) 03/14/21 21:57 BUN 13 mg/dL (7-18) 03/14/21 21:57 Creatinine 0.58 mg/dL (0.55-1.3) 03/14/21 21:57 Glucose 190 mg/dL (74-106) H 03/14/21 21:57 Magnesium 1.9 mg/dL (1.8-2.4) 03/14/21 21:57 Total Bilirubin 0.2 mg/dL (0.2-1.0) 03/14/21 21:57 AST 10 U/L (15-37) L 03/14/21 21:57 ALT 20 U/L (12-78) 03/14/21 21:57 Alkaline Phosphatase 116 U/L (45-117) 03/14/21 21:57 Troponin I < 0.02 ng/mL (0.0-0.045) 03/15/21 07:22 Triglycerides 149 mg/dL (<150) 03/15/21 07:22 Cholesterol 208 mg/dL (<200) H 03/15/21 07:22 HDL Cholesterol 45 mg/dL (40-60) 03/15/21 07:22 Cholesterol/HDL Ratio 4.62 03/15/21 07:22 Home Medications: Aspirin [Ecotrin 81 MG] 81 mg PO DAILY #30 tablet. 03/15/21 Losartan Potassium 50 mg PO DAILY 03/15/21 Metformin HCl 1 tab PO BID 03/15/21 Metoprolol Tartrate [Lopressor*] 25 mg PO BID 6AM 6PM #60 tab 03/15/21 New Medications: Aspirin [Ecotrin 81 MG] 81 mg PO DAILY #30 tablet. Metoprolol Tartrate [Lopressor*] 25 mg PO BID 6AM 6PM #60 tab Physician Discharge Instructions: OK TO DC IV AND DC HOME FOLLOW-UP WITH PRIMARY CARE PROVIDER IN 1-2 WEEKS FOLLOW-UP WITH CARDIOLOGY IN 1-2 WEEKS RETURN TO THE ER IF symptoms worsen CALL or TEXT DR. CARMICHAEL AT [phone] IF ANY QUESTIONS REGARDING HOSPITAL STAY. PLEASE CALL THE FLOOR AT [phone] IF ANY MEDICATION OR NURSING QUESTIONS. Diet: AHA Activity: Fall precautions Followup: KIERA BRAXTON [Primary Care Provider] - Time spent managing pt's care (in minutes): 35
== END 2021-03-15 15:57 | disposition home or self-care (01) ==
LOC: ER 21:00 → ERHOLD 03-15 02:48
PROVIDERS: ADMIT Hospitalist; ATTEND Hospitalist
DX: R07.9 Chest pain, unspecified (principal); I10 Essential (primary) hypertension; E66.9 Obesity, unspecified; Z20.822 Contact with and (suspected) exposure to COVID-19; Z68.41 Body mass index [BMI] 40.0-44.9, adult
CPT/HCPCS: 93005; 85025; 80048; 36415; 83735; 81025; 85610; 80061; 82947 ×2; 85379; 80076; 84443; 81003; 84484 ×3; 84439; 83880; 71045; 99285; U0003; J1650; G0378 ×2

== ENCOUNTER 2022-01-18 09:43 | Emergency (ER) | payer BC ==
[2022-01-18 10:48] LABS: Hematocrit 40.4 % (36.0-45.0); Lymphocytes % 34.8 % (15.3-44.8); MPV 8.9 fL (7.6-11.3); RBC Red Blood Cell Count 4.85 M/uL (3.86-4.86)
[2022-01-18 10:56] LABS: Protime INR 0.88
[2022-01-18 11:09] LABS: ALT/SGPT 24 U/L (12-78); AST/SGOT 11 U/L (15-37); Albumin 3.4 g/dL (3.4-5.0); Alkaline Phosphatase 115 U/L (45-117); BUN Blood Urea Nitrogen 11 mg/dL (7-18); Bicarbonate 28 mmol/L (21-32); Bilirubin Total 0.3 mg/dL (0.2-1.0); Glucose Level 261 mg/dL (74-106); Magnesium 1.7 mg/dL (1.8-2.4); NT PRO-BNP 46 pg/mL (<125); Potassium 3.7 mmol/L (3.5-5.1); Protein, Total 7.5 g/dL (6.4-8.2); Sodium Level 135 mmol/L (136-145)
[2022-01-18 11:10] LABS: Bilirubin Direct < 0.1 mg/dL (0-0.2)
--- NOTE | 2022-01-18 11:22 | RAD REPORT ---
EXAM DESCRIPTION: RAD - Chest Single View - 01/18/2022 11:03 am CLINICAL HISTORY: CHEST PAIN Chest pain. COMPARISON: Chest Single View dated 03/14/2021; Chest Single View dated 10/09/2019 FINDINGS: Portable technique limits examination quality. Mild bilateral interstitial prominence is seen suggesting a mild viral infection. The heart is normal in size. No displaced fractures.
--- NOTE | 2022-01-18 11:51 | ER ---
Nurse's Notes [facility] Name: Lurdes Canales Age: 51 yrs Sex: Female : 1970 Arrival Date: 01/18/2022 Time: 09:48 Bed 16 Private MD: Diagnosis: Other viral pneumonia Presentation: 01/18 09:48 Chief complaint: Patient states: she started having left upper chest pain last night. ap3 patient states the pain comes and goes. She also reports having her left arm get tingly with the pain. Coronavirus screen: At this time, the client does not indicate any symptoms associated with coronavirus-19. Ebola Screen: Patient denies travel to an Ebola-affected area in the 21 days before illness onset. Initial Sepsis Screen: Does the patient meet any 2 criteria? No. Patient's initial sepsis screen is negative. Does the patient have a suspected source of infection? No. Patient's initial sepsis screen is negative. Risk Assessment: Do you want to hurt yourself or someone else? Patient reports no desire to harm self or others. Onset of symptoms was January 17, 2022. 09:48 Method Of Arrival: Ambulatory ap3 09:48 Acuity: GENNA 3 ap3 Triage Assessment: 09:50 General: Appears in no apparent distress. Behavior is calm, cooperative, appropriate ap3 for age. Pain: Complains of pain in anterior aspect of left upper chest Pain radiates to left arm Pain began suddenly, 1 day ago. Is intermittent. Neuro: Level of Consciousness is awake, alert, obeys commands, Oriented to person, place, time, Gait is steady, Speech is normal. Cardiovascular: Capillary refill < 3 seconds Patient's skin is warm and dry. Cardiovascular: Reports chest pain, lightheadedness. Respiratory: Airway is patent Respiratory effort is even, unlabored. 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 - Social history:: Smoking status: Patient denies any tobacco usage or history of. Patient/guardian denies using alcohol, street drugs, The patient lives with family. - Family history:: not pertinent. Screenin:52 Abuse screen: Denies threats or abuse. Nutritional screening: No deficits noted. ap3 Tuberculosis screening: No symptoms or risk factors identified. 10:00 Fall Risk None identified. cb5 Assessment: 10:00 General: Appears in no apparent distress. comfortable, obese, well groomed, Behavior is cb5 calm, cooperative, appropriate for age. Pain: Complains of pain in abdomen. Neuro: No deficits noted. Level of Consciousness is awake, alert, obeys commands, Oriented to person, place, time, situation. Cardiovascular: No deficits noted. Respiratory: No deficits noted. GI: No deficits noted. : No deficits noted. EENT: No deficits noted. Derm: No deficits noted. Musculoskeletal: No deficits noted. 11:00 Reassessment: No changes from previously documented assessment. Patient and/or family cb5 updated on plan of care and expected duration. Pain level reassessed. 12:00 Reassessment: No changes from previously documented assessment. Patient and/or family cb5 updated on plan of care and expected duration. Pain level reassessed. 12:26 Reassessment: Patient appears in no apparent distress at this time. No changes from ss previously documented assessment. Vital Signs: 09:48 BP 157 / 101; Pulse 79; Resp 18; Temp 98.2; Pulse Ox 100% on R/A; Weight 101.6 kg; ap3 Height 5 ft. 5 in. (165.10 cm); Pain 5/10; 12:15 BP 145 / 77; Pulse 70; Resp 16; Temp 98.6; Pulse Ox 98% ; Pain 0/10; cb5 09:48 Body Mass Index 37.28 (101.60 kg, 165.10 cm) ap3 ED Course: 09:48 Patient arrived in ED. mr 09:50 Triage completed. ap3 09:51 Arm band placed on right wrist. ap3 09:52 Patient maintains SpO2 saturation greater than 95% on room air. ap3 09:55 Leeanna Bowman MD is Attending Physician. ma2 10:00 Allergy band placed. Fall risk band placed. Bed in low position. Call light in reach. cb5 traffic monitor specialist on. 10:46 Tatianna Blanco, RN is Primary Nurse. cb5 10:47 Basic Metabolic Panel Sent. cb5 10:47 CBC with Diff Sent. cb5 10:47 LFT's Sent. cb5 10:47 Magnesium Sent. cb5 10:47 NT PRO-BNP Sent. cb5 10:47 PT-INR Sent. cb5 10:47 Troponin HS Sent. cb5 11:03 XRAY Chest (1 view) In Process Unspecified. EDTX 12:26 No provider procedures requiring assistance completed. IV discontinued, intact, ss bleeding controlled, No redness/swelling at site. Pressure dressing applied. Administered Medications: No medications were administered Outcome: 11:51 Discharge ordered by . ma2 12:26 Discharged to home ambulatory. 12:26 Condition: good 12:26 Discharge instructions given to patient, family, Instructed on discharge instructions, follow up and referral plans. medication usage, Demonstrated understanding of instructions, follow-up care, medications, Prescriptions given X 2. 12:27 Discharged to home ambulatory. [facility] 12:27 Condition: stable 12:27 Discharge instructions given to patient. 12:27 Patient left the ED. ss Signatures: Dispatcher [employer] [facility] HernánJayde mr Yeimi Brock, SIMIN RN Leeanna Bowman MD MD ma2 Delfina Carver RN RN ap3 Tatianna Blanco, RN RN cb5
--- NOTE | 2022-01-18 11:51 | EDPHYS ---
Physician Documentation [facility] Name: Lurdes Canales Age: 51 yrs Sex: Female : 1970 Arrival Date: 01/18/2022 Time: 09:48 Bed 16 Private MD: ED Physician Leeanna Bowman HPI: 01/18 10:29 This 51 yrs old Female presents to ER via Ambulatory with complaints of Chest ma2 Pain. 10:29 Patient has history of GERD, here with intermittent left upper chest pressure, for 3 ma2 days, last for few minutes, resolved, worse with deep breath or touching the chest, she has had similar symptoms in the past seen care aid was cleared in the past.. 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 - Social history:: Smoking status: Patient denies any tobacco usage or history of. Patient/guardian denies using alcohol, street drugs, The patient lives with family. - Family history:: not pertinent. ROS: 10:29 Constitutional: Negative for fever, chills, and weight loss. ma2 10:29 All other systems are negative. Exam: 10:29 Constitutional: This is a well developed, well nourished patient who is awake, alert, ma2 and in no acute distress. Chest/axilla: Normal chest wall appearance and motion. Nontender with no deformity. No lesions are appreciated. Cardiovascular: Regular rate and rhythm with a normal S1 and S2. No gallops, murmurs, or rubs. Normal PMI, no JVD. No pulse deficits. Respiratory: Lungs have equal breath sounds bilaterally, clear to auscultation and percussion. No rales, rhonchi or wheezes noted. No increased work of breathing, no retractions or nasal flaring. Abdomen/GI: Soft, non-tender, with normal bowel sounds. No distension or tympany. No guarding or rebound. No evidence of tenderness throughout. Skin: Warm, dry with normal turgor. Normal color with no rashes, no lesions, and no evidence of cellulitis. MS/ Extremity: Pulses equal, no cyanosis. Neurovascular intact. Full, normal range of motion. Neuro: Awake and alert, GCS 15, oriented to person, place, time, and situation. Cranial nerves II-XII grossly intact. Motor strength 5/5 in all extremities. Sensory grossly intact. Cerebellar exam normal. Normal gait. Vital Signs: 09:48 BP 157 / 101; Pulse 79; Resp 18; Temp 98.2; Pulse Ox 100% on R/A; Weight 101.6 kg; ap3 Height 5 ft. 5 in. (165.10 cm); Pain 5/10; 12:15 BP 145 / 77; Pulse 70; Resp 16; Temp 98.6; Pulse Ox 98% ; Pain 0/10; cb5 09:48 Body Mass Index 37.28 (101.60 kg, 165.10 cm) ap3 MDM: 09:55 Patient medically screened. ma2 10:29 Differential diagnosis: Differential diagnoses include GERD, gastritis, patient states ma2 chest pressure described as burning worse when she burp, intermittent last for few minutes at a time. 11:50 Data reviewed: vital signs, nurses notes, EMS record. Counseling: I had a detailed ma2 discussion with the patient and/or guardian regarding: the historical points, exam findings, and any diagnostic results supporting the discharge/admit diagnosis, the presence of at least one elevated blood pressure reading (>120/80) during this emergency department visit, the need for outpatient follow up. 01/18 09:56 Order name: Basic Metabolic Panel; Complete Time: 11:49 01/18 09:56 Order name: CBC with Diff; Complete Time: 11:49 01/18 09:56 Order name: LFT's; Complete Time: 11:49 01/18 09:56 Order name: Magnesium; Complete Time: 11:49 01/18 09:56 Order name: NT PRO-BNP; Complete Time: 11:49 01/18 09:56 Order name: PT-INR; Complete Time: 11:49 01/18 09:56 Order name: Troponin HS; Complete Time: 11:49 01/18 09:56 Order name: XRAY Chest (1 view); Complete Time: 11:49 01/18 09:56 Order name: EKG; Complete Time: 09:57 01/18 09:56 Order name: Cardiac monitoring; Complete Time: 10:47 01/18 09:56 Order name: EKG - Nurse/Tech; Complete Time: 10:47 01/18 09:56 Order name: IV Saline Lock; Complete Time: 10:47 01/18 09:56 Order name: Labs collected and sent; Complete Time: 10:47 01/18 09:56 Order name: O2 Per Protocol; Complete Time: 10:47 01/18 09:56 Order name: O2 Sat Monitoring; Complete Time: 10:47 Administered Medications: No medications were administered Disposition Summary: 01/18/22 11:51 Discharge Ordered Location: Home ma2 Condition: Stable ma2 Diagnosis - Other viral pneumonia ma2 Followup: ma2 - With: Private Physician - When: Tomorrow - Reason: Continuance of care Discharge Instructions: - Discharge Summary Sheet ma2 - Food Choices for Gastroesophageal Reflux Disease, Adult ma2 Forms: - Medication Reconciliation Form ma2 - Thank You Letter ma2 - Antibiotic Education ma2 - Prescription Opioid Use ma2 Prescriptions: - Zithromax Z-Dmitri 250 mg Oral Tablet - take 1 tablet by ORAL route as directed for 5 days Day 1 - take two (2) tablets ma2 one time. Day 2, 3, 4 , 5 take one (1) tablet once daily.; 6 tablet; Refills: 0, Product Selection Permitted - Pepcid 20 mg Oral Tablet - take 1 tablet by ORAL route every 12 hours for 5 days; 10 tablet; Refills: 0, ma2 Product Selection Permitted Signatures: Dispatcher [employer] Leeanna Raya MD MD ma2 Delfina Carver RN RN ap3
[2022-01-18 12:41] VITALS: BP 145/77; TEMP 98.6; O2SAT 98
== END 2022-01-18 12:27 | disposition home or self-care (01) ==
LOC: ER 09:43
DX: J12.89 Other viral pneumonia (principal); I10 Essential (primary) hypertension; E11.9 Type 2 diabetes mellitus without complications
CPT/HCPCS: 36415; 71045; 80048; 80076; 83735; 83880; 84484; 85025; 85610; 93005; 99284